=== PATIENT | male | born 1995 | race Caucasian/White ===

== ENCOUNTER 2016-07-23 20:08 | Emergency (ER) | payer BC, SELFPAY ==
[~2016-07-23 20:08] MED LIST: AMOXICILLIN875 MG PO; IBUPROFEN600 M1 PO; NO HOME MEDICATION XX; NORCO 5-325 TA1 EACH PO; NORCO 5/325 TAB1 TAB PO; TRAMADOL HCL50 M2 PO; VALIUM2 M1 PO; VICODIN 5/500 T1 TAB PO; ZOFRAN ODT4 MG PO
[2016-07-23] MEDS ORDERED: LUNESTA1 M1 PO (20:36)
[2016-07-23] MEDS ORDERED: VALIUM5 M1 PO (20:37)
[2016-07-23] MEDS ORDERED: VALIUM2 M1 PO (20:37)
[2016-07-23] MEDS ORDERED: MECLIZINE HCL25 M4 PO (20:38)
[2016-07-23] MEDS ORDERED: ADVAIR 100-501 EACH (20:38)
[2016-07-23] MEDS ORDERED: IBUPROFEN200 M2 PO (20:38)
[2016-07-23] MEDS ORDERED: FLONASE ALLERG9.9 ML (20:54)
[2016-07-23 21:33] LABS: BASO % 0.3 % (0-2); EOS % 1.3 % (0-7); EOSINOPHIL ABSOLUTE COUNT 0.1 tho/cmm (0.0-0.7); HGB-HEMOGLOBIN 16.4 gm/dl (13.5-17.0); IMMATURE GRANULOCYTES ABSOLUTE 0.01 tho/cmm (0-0.03); IMMATURE GRANULOCYTES PERCENT 0.2 % (0-0.3); LYMPH % 27.6 % (20-45); LYMPH ABSOLUTE COUNT 1.7 tho/cmm (0.8-4.5); MONO % 8.8 % (0-12); MONOCYTE ABSOLUTE COUNT 0.5 tho/cmm (0.0-1.2); NEUTROPHIL ABSOLUTE COUNT 3.8 tho/cmm (1.6-8.0); NEUTROPHIL-AUTOMATED 3.8 tho/cmm (1.6-8.0); NEUTROPHILS % 61.8 % (40-80); PLATELET COUNT 192 tho/cmm (150-450); RED CELL DISTRIBUTION WIDTH 12.2 % (12.4-16.4); WHITE BLOOD COUNT 6.1 tho/cmm (4.0-10.0)
[2016-07-23 21:39] LABS: HCT-HEMATOCRIT 46.9 % (36.0-53.5); MCH (MEAN CORPUSCULAR HGB) 29.2 pg (28.0-32.0); MCV (MEAN CELL VOLUME) 83.5 fl (82.0-96.0); RED BLOOD COUNT 5.62 mil/cmm (4.40-5.70)
[2016-07-23 22:00] LABS: ALB/GLOB RATIO 1.3 (0.8-2.0); ALBUMIN 3.9 g/dl (3.5-5.0); ALKALINE PHOSPHATASE 69 U/L (33-138); ALT/SGPT 24 U/L (12-78); ANION GAP 13 mmol/L (0-20); AST/SGOT 17 U/L (10-40); BILIRUBIN,TOTAL 0.6 mg/dl (0.0-1.5); BLOOD UREA NITROGEN 12 mg/dl (6-24); CALCIUM 8.8 mg/dl (8.5-10.5); CARBON DIOXIDE-VENOUS 21 mmol/L (22-32); CHLORIDE 109 mmol/l (96-110); CREATININE 0.95 mg/dl (0.60-1.30); GLUCOSE 98 mg/dL (70-110); POTASSIUM 3.5 mmol/L (3.7-5.1); SODIUM 139 mmol/L (135-145); eGFR VALUE FOR BLACK >90 mL/Min
[2016-10-04] MEDS ORDERED: PAMELOR10 M2 PO (02:49)
[2016-10-04] MEDS ORDERED: TRANSDERM-SCOP1 EACH TD (02:52)
== END 2016-07-23 22:30 ==
LOC: EDMED 20:08
PROVIDERS: Physician Assistant
DX: H53.149 Visual discomfort, unspecified (principal); R42 Dizziness and giddiness; R51 Headache; R11.2 Nausea with vomiting, unspecified; F41.9 Anxiety disorder, unspecified
CPT/HCPCS: J1885; J2405; J7030